=== PATIENT | male | born 1980 | race Caucasian/White ===

== ENCOUNTER 2021-12-18 07:54 | Outpatient (CLI) | payer BC | END 2021-12-18 07:55 | disposition home or self-care (01) | LOC: CSHLAB 07:54 | PROVIDERS: ATTEND Surgery | DX: Z20.822 Contact with and (suspected) exposure to COVID-19 (principal); R22.2 Localized swelling, mass and lump, trunk | CPT/HCPCS: 87811 ==

== ENCOUNTER 2021-12-23 05:57 | Day surgery (SDC) | payer BC ==
[2021-12-19 12:14] VITALS: BMI 23.1
[2021-12-23] MEDS ORDERED: Bupivacaine PF 0.5% 30 ML VIAL ONE (06:38)
[2021-12-23] MEDS ORDERED: EPINEPHrine 1 MG/ML AMP ONE (06:38)
[2021-12-23] MEDS ORDERED: PROPOFOL 40 ML ONE (07:07)
[2021-12-23] MEDS ORDERED: Midazolam HCl 2 mg/2 ml Vial ONE (07:08)
[2021-12-23] MEDS ORDERED: Lidocaine 1% (PF) 30 ML VIAL ONE (07:08)
[2021-12-23] MEDS ORDERED: Fentanyl 100 MCG/2 ML VIAL ONE (07:08)
[2021-12-23] MEDS ORDERED: CEFAZOLIN 2 GM VIAL ONE (07:20)
[2021-12-23] MEDS ORDERED: PHENYLEPHRINE-NS 100 MCG/ML 10 ML SYRINGE ONE (07:44)
[2021-12-23] MEDS ORDERED: Dexamethasone 4 mg/ml Vial ONE (07:56)
[2021-12-23] MEDS ORDERED: Ondansetron PF 4 MG/2 ML Vial ONE (07:56)
[2021-12-23] MEDS ORDERED: Ketorolac Tromethamine 30 MG/ML VIAL ONE (08:28)
== END 2021-12-23 10:00 | disposition home or self-care (01) ==
LOC: CSHSDC 05:57
PROVIDERS: ATTEND Surgery
PROC: 0JB70ZZ Excision of Back Subcutaneous Tissue and Fascia, Open Approach (ICD-10-PCS; principal; 2021-12-23)
DX: D17.1 Benign lipomatous neoplasm of skin and subcutaneous tissue of trunk (principal); J45.909 Unspecified asthma, uncomplicated; Z79.899 Other long term (current) drug therapy; Z87.891 Personal history of nicotine dependence; Z20.822 Contact with and (suspected) exposure to COVID-19
CPT/HCPCS: 88304; J0171; J0690; J1100; J1885; J2001; J2250; J2405; J2704; J3010; S0020